=== PATIENT | male | born 1990 | race Caucasian/White ===

== ENCOUNTER 2016-10-29 22:20 | Emergency (ER) | payer OTHER ==
[~2016-10-29] VITALS: Ht 180.3 cm; Wt 86.0 kg
[2016-10-29 23:31] LABS: HEMATOCRIT 44.4 % (38.0-50.0); MCH 32.5 PG (29.0-34.0); MCHC 34.2 G/DL (30.0-36.0); MCV 95.1 FL (86-99); MEAN PLAT.VOLUME 10.1 uM^3 (9.0-12.4); PLATELET COUNT 160 K/uL (156-360); RBC DIS.WIDTH-CV 12.3 % (11.8-14.6); RED BLOOD COUNT 4.67 M/uL (4.00-5.50); WHITE BLOOD COUNT 20.6 K/uL (4.1-10.2)
[2016-10-29 23:42] LABS: CHLORIDE 103 mEq/L (99-109); POTASSIUM 3.9 mEq/L (3.7-5.4); SODIUM 139 mEq/L (136-147)
[2016-10-29 23:44] LABS: GLUCOSE 235 mg/dL (70-99)
[2016-10-29 23:46] LABS: ANION GAP 11 MEQ/L (2-14)
[2016-10-29 23:47] LABS: SERUM ETHYL ALCOHOL < 10 mg/dL
[2016-10-29 23:48] LABS: GFR ESTIMATE (CALCULATED) > 59 mL/min/
[2016-10-29 23:49] LABS: UREA NITROGEN (BUN) 19 mg/dL (9-23)
[2016-10-30] MEDS ORDERED: AUGMENTIN875 MG PO (01:40)
[2016-10-30] MEDS ORDERED: NARCAN4 MG NS (02:47)
[2016-10-30 03:12] VITALS: BP 122/88
== END 2016-10-30 03:13 | disposition home or self-care (01) ==
LOC: EME → EDBD 22:20 → EME 10-30 03:13
PROVIDERS: Emergency Medicine
DX: T40.1X1A Poisoning by heroin, accidental (unintentional), initial encounter (principal); S01.352A Open bite of left ear, initial encounter; S01.05XA Open bite of scalp, initial encounter; S01.452A Open bite of left cheek and temporomandibular area, initial encounter; S01.85XA Open bite of other part of head, initial encounter; T79.7XXA Traumatic subcutaneous emphysema, initial encounter; W54.0XXA Bitten by dog, initial encounter; Y92.002 Bathroom of unspecified non-institutional (private) residence as the place of occurrence of the external cause; R00.0 Tachycardia, unspecified; R11.10 Vomiting, unspecified; F10.99 Alcohol use, unspecified with unspecified alcohol-induced disorder; F17.200 Nicotine dependence, unspecified, uncomplicated
CPT/HCPCS: 70450; 70486; 80048; 81003; 85027; 99281; 99285; G0480; J0690; J1885; J2405; J7030